=== PATIENT | female | born 2000 ===

== ENCOUNTER 2021-08-24 03:07 | Inpatient (IN) ==
[2021-08-24] MEDS ORDERED: TRANEXAMIC ACID 1,000 MG in SODIUM CHLORIDE 0.9% 100 ML IV PRN (03:25)
[2021-08-24] MEDS ORDERED: ceFAZolin 3,000 MG in SYRINGE 1 EACH IV ONE ×2 (03:25→11:30)
[2021-08-24] MEDS ORDERED: CITRIC ACID/SODIUM CITRATE 30 ML UDCUP PO ONE ×2 (03:25→11:30)
[2021-08-24] MEDS ORDERED: FAMOTIDINE 20 MG/2 ML VIAL IV ONE ×2 (03:25→11:30)
[2021-08-24] MEDS ORDERED: OXYTOCIN/LR 20 UNIT/1,000 ML BAG IV ONE ×2 (03:25→15:48)
[2021-08-24] MEDS ORDERED: CARBOPROST TROMETHAMINE 250 MCG/ML AMP IM PRN (03:25)
[2021-08-24] MEDS ORDERED: miSOPROStoL 200 MCG TABLET RECTAL PRN (03:25)
[2021-08-24] MEDS ORDERED: OXYTOCIN/LR 30 UNIT/1,000 ML BAG IV ONE (03:29)
[2021-08-24] MEDS ORDERED: OXYTOCIN 10 UNIT/ML VIAL IM ONE ×2 (03:29→12:30)
[2021-08-24] MEDS ORDERED: LACTATED RINGERS 1,000 ML IV SCH (03:30)
[2021-08-24] MEDS ORDERED: NIFEdipine 10 MG CAPSULE PO ONE ×2 (03:42→04:05)
[2021-08-24 04:07] LABS: RBC,Urine 56 /HPF (0-4); Squamous Epithelial Cell,Urine Occasional /HPF (0-10)
[2021-08-24 04:08] LABS: Bilirubin,Urine Negative (Negative); Blood, Urine Large mg/dL (Negative); Glucose,Urine (UA) 500 mg/dL (Negative); Ketones,Urine 15 mg/dL (Negative); Nitrite,Urine Negative (Negative); Protein,Urine 100 mg/dL (Negative); Urine Appearance Slightly Hazy (Clear); Urine Color Yellow (Yellow); Urine Urobilinogen 0.2 eU/dL (<2.0)
[2021-08-24 04:16] LABS: Protein/Creatinine Ratio,Urine 6.1 RATIO
[2021-08-24 04:17] LABS: INR 0.8; PT Patient Result 9.4 SECS (10.5-12.0)
[2021-08-24 04:24] LABS: Bilirubin,Direct < 0.100 MG/DL (0.0-0.20); Uric Acid 2.7 MG/DL (2.6-6.0)
[2021-08-24] MEDS ORDERED: LABETALOL 200 MG TABLET PO ONE (04:35)
[2021-08-24 04:44] LABS: Alanine Aminotransferase 16 U/L (13-56); Albumin 2.2 G/DL (3.4-5.0); Alkaline Phosphatase 211 U/L (45-117); Aspartate Amino Transferase 30 U/L (0-37); Bilirubin,Total < 0.39 MG/DL (0.20-1.00); Blood Urea Nitrogen 9 MG/DL (7-18); Calcium 8.4 MG/DL (8.5-10.1); Carbon Dioxide 19 MMOL/L (21-32); Chloride 108 MMOL/L (98-107); Glucose 236 MG/DL (74-106); Osmolality,Calculated 281.7 MOS/KG (273-304); Potassium 3.9 MMOL/L (3.5-5.1); Sodium 138 MMOL/L (136-145); Total Protein 7.8 G/DL (6.4-8.2)
[2021-08-24 04:57] LABS: HIV Antigen/Antibody Result Nonreactive (Nonreactive); Hepatitis B Surface Ag Quant < 0.10 Index; Hepatitis B Surface Ag Result Non-Reactive (NonReactive)
[2021-08-24 05:05] LABS: Basophils % 0.3 % (0.0-0.8); Eosinophils # 0.1 10*3/uL (0.0-0.87); Hematocrit 34.6 VOL% (35.7-47.0); Hemoglobin 11.9 GM/DL (12.0-16.0); Immature Granulocytes % 1.2 %; Immature Granulocytes Absolute 0.08 #; Lymphocytes # 2.1 10*3/uL (1.4-4.0); Mean Corpuscular HGB Conc 34.4 GM/DL (32-36); Mean Corpuscular Volume 83.2 FL (87-102); Mean Platelet Volume 11.4 FL (9.6-12.0); Monocytes # 0.5 10*3/uL (0.11-0.8); Monocytes % 6.9 % (1.7-12.7); NRBC # 0.02 10*3/uL; Neutrophils % 60.6 % (38.7-73.9); Platelet Count 145 T/CUMM (130-400); Red Blood Count 4.16 MC/CUMM (3.8-5.5); Red Cell Distribution Width 12.7 % (9.3-17.3); White Blood Count 6.8 T/CUMM (4-12)
[2021-08-24 06:26] LABS: Barbiturates Screen,Urine Negative (Negative); Benzodiazepines Screen,Urine Negative (Negative); Cannabinoid Screen,Urine Negative (Negative); Opiate Screen,Urine Negative (Negative); Phencyclidine Screen,Urine Negative (Negative)
[2021-08-24] MEDS ORDERED: BUPIVACAINE SPINAL 0.75% 2 ML AMP SPINAL ONE (11:43)
[2021-08-24] MEDS ORDERED: ACETAMINOPHEN INJ 1,000 MG/100 ML VIAL IV ONE (11:43)
[2021-08-24] MEDS ORDERED: ONDANSETRON 4 MG/2 ML VIAL ONE (11:43)
[2021-08-24] MEDS ORDERED: DEXAMETHASONE 4 MG/1 ML VIAL ONE ×2 (11:43→15:09)
[2021-08-24] MEDS ORDERED: KETOROLAC 30 MG/1 ML VIAL ONE (11:43)
[2021-08-24] MEDS ORDERED: buprenorphine HCL 0.3 MG/ML VIAL ONE (11:45)
[2021-08-24] MEDS: LACTATED RINGERS 1,000 ML IV SCH (14:00)
[2021-08-24] MEDS ORDERED: LIDOCAINE 2% 5 ML VIAL ONE (14:37)
[2021-08-24 15:15] LABS: Glucose,Urine (UA) Negative (Negative); Protein,Urine 100 mg/dL (Negative); Urine Appearance Clear (Clear); Urine Color Yellow (Yellow); Urine Specific Gravity >= 1.030 (1.001-1.035); Urine pH 6.5 (4.5-8.0)
[2021-08-24] MEDS ORDERED: FUROSEMIDE 40 MG/4 ML VIAL IV SCH (15:15)
[2021-08-24 15:16] LABS: Bilirubin,Urine Negative (Negative); Blood, Urine Negative (Negative); Ketones,Urine Negative (Negative); Nitrite,Urine Negative (Negative); Urine Urobilinogen 0.2 eU/dL (<2.0)
[2021-08-24 15:18] LABS: Cord Arterial Blood HCO3 21.5 MMOL/L
[2021-08-24 15:19] LABS: Mucus,Urine Many /LPF (Occasional); RBC,Urine 30-35 /HPF (0-4)
[2021-08-24 15:20] LABS: Cord Venous Blood HCO3 22.3 MMOL/L; Cord Venous Blood PCO2 49.5 MMHG; Cord Venous Blood PO2 31.1
[2021-08-24] MEDS ORDERED: ACETAMINOPHEN 325 MG TABLET PO PRN (15:48)
[2021-08-24] MEDS ORDERED: ONDANSETRON 4 MG/2 ML VIAL IV PRN (15:48)
[2021-08-24] MEDS ORDERED: IBUPROFEN 800 MG TABLET PO PRN (15:48)
[2021-08-24] MEDS ORDERED: GLUCAGON 1 MG VIAL IM PRN (15:48)
[2021-08-24] MEDS ORDERED: MAGNESIUM HYDROXIDE SUSP 30 ML UDCUP PO PRN (15:48)
[2021-08-24] MEDS ORDERED: RHO(D) IMMUNE GLOBULIN 300 MCG SYRINGE IM ONE (15:48)
[2021-08-24] MEDS ORDERED: SIMETHICONE CHEW 80 MG TABLET PO PRN (15:48)
[2021-08-24] MEDS ORDERED: DEXTROSE 10% 250 ML BAG IV PRN (15:53)
[2021-08-24] MEDS: KETOROLAC 30 MG/1 ML VIAL IV SCH (18:17)
[2021-08-24] MEDS: ACETAMINOPHEN 500 MG TABLET PO SCH (18:18)
[2021-08-24] MEDS: DOCUSATE SODIUM 100 MG CAPSULE PO SCH (23:05)
[2021-08-24] MEDS: FUROSEMIDE 40 MG/4 ML VIAL IV SCH (23:10)
[2021-08-25] MEDS: KETOROLAC 30 MG/1 ML VIAL IV SCH ×2 (00:03→06:05)
[2021-08-25] MEDS: ACETAMINOPHEN 500 MG TABLET PO SCH ×2 (00:09→06:06)
[2021-08-25] MEDS: LACTATED RINGERS 1,000 ML IV SCH ×2 (00:46→02:31)
[2021-08-25 04:36] LABS: Basophils % 0.3 % (0.0-0.8); Eosinophils % 0.1 % (0.00-10.9); Hematocrit 28.6 VOL% (35.7-47.0); Hemoglobin 9.9 GM/DL (12.0-16.0); Immature Granulocytes % 0.4 %; Immature Granulocytes Absolute 0.04 #; Lymphocytes # 2.4 10*3/uL (1.4-4.0); Lymphocytes % 26.9 % (21.3-54.2); Mean Corpuscular HGB Conc 34.6 GM/DL (32-36); Mean Corpuscular Volume 82.4 FL (87-102); Mean Platelet Volume 11.8 FL (9.6-12.0); Monocytes # 0.7 10*3/uL (0.11-0.8); Monocytes % 7.8 % (1.7-12.7); Neutrophils % 64.5 % (38.7-73.9); Platelet Count 146 T/CUMM (130-400); Red Blood Count 3.47 MC/CUMM (3.8-5.5); Red Cell Distribution Width 12.6 % (9.3-17.3)
[2021-08-25] MEDS: FUROSEMIDE 40 MG/4 ML VIAL IV SCH (05:13)
[2021-08-25] MEDS: MULTIVITAMIN (PRENATAL) TABLET PO SCH ×2 (07:56→09:00)
[2021-08-25] MEDS: DOCUSATE SODIUM 100 MG CAPSULE PO SCH ×3 (07:57→20:57)
[2021-08-25] MEDS ORDERED: METOCLOPRAMIDE 10 MG TABLET PO SCH (09:00)
[2021-08-25] MEDS ORDERED: METOCLOPRAMIDE 10 MG/10 ML UDCUP PO SCH (09:00)
[2021-08-25] MEDS: METOCLOPRAMIDE 10 MG TABLET PO SCH (20:58)
[2021-08-26] MEDS: METOCLOPRAMIDE 10 MG TABLET PO SCH (05:51)
[2021-08-26] MEDS: MULTIVITAMIN (PRENATAL) TABLET PO SCH (08:21)
[2021-08-26] MEDS: DOCUSATE SODIUM 100 MG CAPSULE PO SCH ×2 (08:22→21:54)
[2021-08-26] MEDS ORDERED: DIPH/TET/ACEL PERT BOOSTER VACCINE 0.5 ML VIAL IM ONE (10:22)
[2021-08-27] MEDS: MULTIVITAMIN (PRENATAL) TABLET PO SCH (08:20)
[2021-08-27] MEDS: DOCUSATE SODIUM 100 MG CAPSULE PO SCH (08:20)
[2021-08-27 08:30] VITALS: BP 138/84
== END 2021-08-27 15:45 | disposition home or self-care (01) | DRG 540 ==
LOC: N.LD 03:07 → N.OB 19:45
PROVIDERS: ADMIT Obstetrics & Gynecology; ATTEND Obstetrics & Gynecology
PROC: LDCSECT (ICD-10-PCS; 2021-08-24 07:30)

== ENCOUNTER 2022-02-23 11:32 | Observation (INO) ==
[2022-02-23] MEDS ORDERED: ONDANSETRON 4 MG/2 ML VIAL IV STA (11:57)
[2022-02-23] MEDS ORDERED: HYDROmorphone 1 MG/1 ML SYRINGE IV STA ×2 (11:58→15:26)
[2022-02-23 12:16] LABS: Basophils % 0.4 % (0.0-0.8); Eosinophils % 0.4 % (0.00-10.9); Hematocrit 35.2 VOL% (35.7-47.0); Hemoglobin 12.3 GM/DL (12.0-16.0); Immature Granulocytes % 0.3 %; Immature Granulocytes Absolute 0.03 #; Lymphocytes # 1.3 10*3/uL (1.4-4.0); Lymphocytes % 14.3 % (21.3-54.2); Mean Corpuscular HGB Conc 34.9 GM/DL (32-36); Mean Corpuscular Volume 83.8 FL (87-102); Mean Platelet Volume 9.8 FL (9.6-12.0); Monocytes # 0.4 10*3/uL (0.11-0.8); Monocytes % 4.5 % (1.7-12.7); Neutrophils % 80.1 % (38.7-73.9); Platelet Count 186 T/CUMM (130-400); Red Cell Distribution Width 11.8 % (9.3-17.3); White Blood Count 9.2 T/CUMM (4-12)
[2022-02-23 12:49] LABS: Albumin 3.3 G/DL (3.4-5.0); Bilirubin,Total 0.4 MG/DL (0.20-1.00); Calcium 8.5 MG/DL (8.5-10.1); Osmolality,Calculated 278.2 MOS/KG (273-304); Total Protein 7.1 G/DL (6.4-8.2)
[2022-02-23] MEDS ORDERED: ACETAMINOPHEN 325 MG TABLET PO PRN (16:20)
[2022-02-23] MEDS ORDERED: ONDANSETRON 4 MG/2 ML VIAL IV PRN (16:20)
[2022-02-23] MEDS ORDERED: MAGNESIUM HYDROXIDE SUSP 30 ML UDCUP PO PRN (16:20)
[2022-02-23] MEDS ORDERED: BISACODYL 10 MG SUPP RECTAL PRN (16:20)
[2022-02-23] MEDS: LACTATED RINGERS 1,000 ML IV SCH (17:07)
[2022-02-23] MEDS ORDERED: oxyCODONE/ACETAMINOPHEN 5-325 MG TABLET PO PRN (17:47)
[2022-02-23] MEDS ORDERED: miSOPROStoL 200 MCG TABLET VAG ONE (17:48)
[2022-02-23] MEDS ORDERED: RHO(D) IMMUNE GLOBULIN 300 MCG SYRINGE IM ONE (18:21)
[2022-02-24] MEDS: DOCUSATE SODIUM 100 MG CAPSULE PO SCH ×2 (00:46→09:04)
[2022-02-24] MEDS: LACTATED RINGERS 1,000 ML IV SCH (03:38)
[2022-02-24 06:51] LABS: Basophils % 0.3 % (0.0-0.8); Eosinophils # 0.2 10*3/uL (0.0-0.87); Eosinophils % 3.2 % (0.00-10.9); Hematocrit 29.2 VOL% (35.7-47.0); Hemoglobin 10.3 GM/DL (12.0-16.0); Immature Granulocytes % 0.3 %; Immature Granulocytes Absolute 0.02 #; Lymphocytes # 2.2 10*3/uL (1.4-4.0); Lymphocytes % 37.2 % (21.3-54.2); Mean Corpuscular HGB Conc 35.3 GM/DL (32-36); Mean Corpuscular Volume 84.1 FL (87-102); Mean Platelet Volume 9.7 FL (9.6-12.0); Monocytes # 0.4 10*3/uL (0.11-0.8); Platelet Count 159 T/CUMM (130-400); Red Blood Count 3.47 MC/CUMM (3.8-5.5); Red Cell Distribution Width 11.8 % (9.3-17.3)
[2022-02-24] MEDS ORDERED: DIPH/TET/ACEL PERT BOOSTER VACCINE 0.5 ML VIAL IM ONE (15:14)
[2022-02-24] MEDS ORDERED: INFLUENZA VIRUS VACCINE 0.5 ML SYRINGE IM ONE (15:14)
[2022-02-24 18:51] VITALS: BP 110/72
== END 2022-02-24 18:45 | disposition home or self-care (01) ==
LOC: N.ED 11:32 → N.EDINP 11:32 → N.OB 16:57
PROVIDERS: ADMIT Obstetrics & Gynecology; ATTEND Obstetrics & Gynecology